=== PATIENT | male | born 1940 | race Caucasian/White ===

== ENCOUNTER 2016-11-30 06:35 | Day surgery (SDC) | payer OTHER ==
[~2016-11-30] VITALS: Ht 167.6 cm; Wt 69.8 kg
[~2016-11-30 06:35] MED LIST: ASPIRIN81 M2 PO; COREG12.5 M1 PO; COUMADIN2 MG PO; COZAAR25 MG PO; FLOMAX0.4 MG PO; INSPRA25 MG PO; LOVENOX80 MG/0.8 SC; MULTIPLE VITAM1 EAC1 PO; OMEPRAZOLE40 M1 PO; PROSCAR5 MG PO; TESSALON200 MG PO; VYTORIN 10/41 TABLET PO
[2016-11-30 07:26] LABS: INTER. NORMALIZED RATIO 1.2; PROTHROMBIN TIME 13.5 SEC (10.2-12.9)
[2016-11-30 08:09] VITALS: BP 131/72
[2016-11-30 10:45] VITALS: BP 120/68
[2016-11-30 11:44] VITALS: BP 127/59
== END 2016-11-30 11:50 | disposition home or self-care (01) ==
LOC: SDC 06:35
PROVIDERS: Ophthalmology
DX: H43.822 Vitreomacular adhesion, left eye (principal); H35.372 Puckering of macula, left eye; H35.81 Retinal edema; I48.2 Chronic atrial fibrillation; D86.9 Sarcoidosis, unspecified; I05.0 Rheumatic mitral stenosis; E03.9 Hypothyroidism, unspecified; E78.5 Hyperlipidemia, unspecified; K21.9 Gastro-esophageal reflux disease without esophagitis; Z79.01 Long term (current) use of anticoagulants; Z88.2 Allergy status to sulfonamides; Z79.82 Long term (current) use of aspirin; I27.2 Other secondary pulmonary hypertension
CPT/HCPCS: 85610; 85730; J0690; J0713; J2250; J2405; J3010; J3300